=== PATIENT | female | born 1985 | race Caucasian/White ===

== ENCOUNTER 2020-02-10 03:55 | Emergency (ER) | payer SELFPAY ==
[~2020-02-10] VITALS: Ht 170.2 cm; Wt 63.5 kg
--- NOTE | 2020-02-10 04:02 | NUR ---
ED Nurse Note: Patient brought in accompanied by [facility] for medical clearance. Patient aao x 4 and ambulatory. Patient no c/o pain. Patient stable upon assessment.
[2020-02-10 04:03] VITALS: BP 110/75
--- NOTE | 2020-02-10 04:10 | Emergency Room Report ---
History of Present Illness General Chief Complaint: Medical Clearance Source: Patient Present Illness HPI 34-year-old female presents as a half-way check. She denies pain, complaint, or any issue at this time. She is refusing medical care. The patient's symptoms were gradual onset, severity was mild, duration since 0 days. Quality: Denies pain Severity: Mild Past medical history: Anxiety Past surgical history: Denies Smoking: Tobacco, marijuana Alcohol use: Occasional Drug use: Denies Review of systems: CONST: No fevers or chills, No night sweats PULMONARY: No productive cough, No shortness of breath CARDIAC: No chest pain, No palpitations GI: No vomiting, No diarrhea , No melena_or_BRBPR : No dysuria, No hematuria, No discharge NEURO: No new_focal_weakness_or_numbness, No confusion, No vision changes 14 point Review of Systems is otherwise negative except per HPI Physical Exam: GENERAL: Awake_alert_ nontoxic, no acute distress Spo2 99 % on RA -normal EYES: Extraocular muscles are intact. Conjunctivae clear. Lids without swelling ENT: External nose and ear normal_in_appearance. Oropharynx clear. Head_ atraumatic, Moist_oral_mucosa NECK: No JVD. No meningismus. No thyromegaly. Supple. Trachea midline RESP: Normal respiratory effort. Symmetric rise. No stridor. Clear_to_ auscultation_No_rales_No_wheezes CARDIAC: Regular rate and regular rhythm on_auscultation No_significant pedal edema. ABDOMEN: Soft. Nondistended. Nontender_No_rebound_or_guarding. MSK: Normal muscle tone, without rigidity. Extremities without asymmetric deformity or swelling. SKIN: Warm and dry. No visible cyanosis or pallor NEUROLOGIC: Alert, oriented x3. Motor_and_sensation_grossly_intact. No truncal ataxia. Gait_normal Psych: Normal mood and affect, normal judgment and insight - COORDINATION OF CARE Case was discussed with: Patient Medical Decision Making/Plan: Incarcerated 34-year-old female here for half-way check. She denies complaints at this time. She is neurologically intact with stable vital signs. Also is afebrile. Clinically sober. She is refusing medical care /treatment She is medically cleared for incarceration. 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 Patient History Last Menstrual Period: 01/14/20 Now: No : 0 Para: 0 Nursing Documentation-[facility] Past Medical History: No Stated History Physical Exam Vital Signs Date Time Temp Pulse Resp B/P (MAP) Pulse Ox O2 Delivery O2 Flow Rate FiO2 02/10/20 03:59 98.6 73 18 108/70 (83) 99 Room Air Sp02 EP Interpretation: reviewed, normal Medical Decision Making Diagnostic Impression: Primary Impression: Medical clearance for incarceration Last Vital Signs Date Time Temp Pulse Resp B/P (MAP) Pulse Ox O2 Delivery O2 Flow Rate FiO2 02/10/20 04:03 70 18 Room Air 02/10/20 04:03 98.5 110/75 99 Disposition: LAW ENFORCEMENT IN [facility]UST Admit Decision Time: 04:20 Condition: Stable Additional Instructions: Medically clear for half-way. Instructions for patient/high school math tutor: Follow up with your half-way MD in 1 to 2 days Follow-up with your doctor sooner if your condition requires a more timely clinical reevaluation. Return to the emergency department immediately if you feel that your condition is worsening or if you have any new or concerning symptoms. Review your discharge instructions and take any prescriptions given as instructed. Jzamin Martinez D.O. Feb 10, 2020 04:10
[2020-02-10 04:22] VITALS: BP 122/78
--- NOTE | 2020-02-10 04:22 | NUR ---
ER DISCHARGE NOTE: Patient is medically cleared to be discharged to the care of ANGIE per NEREIDA, pt is aox4, on room air, with stable vital signs. [employer] officer was given DC paperwork, signed by Officer Dejan. pt is able to ambulate with steady gait. pt took all belongings. Pt stable upon discharge.
== END 2020-02-10 04:22 ==
LOC: EMR 04:20
DX: Z02.89 Encounter for other administrative examinations (principal); F17.200 Nicotine dependence, unspecified, uncomplicated
CPT/HCPCS: 99281